=== PATIENT | male | born 1955 | race Caucasian/White ===

== ENCOUNTER → 2021-05-03 00:25 | Outpatient (CLI) | payer MEDICARE, SELFPAY ==
[2021-05-03 21:52] LABS: SARS-CoV-2 RNA PCR Negative
== END ==
PROVIDERS: PCP Family Medicine; Visit Provider Internal Medicine Critical Care Medicine
DX: R68.89 Other general symptoms and signs (principal); Z20.822 Contact with and (suspected) exposure to COVID-19
CPT/HCPCS: C9803; U0003; U0005

== ENCOUNTER 2021-05-06 16:00 | Outpatient (CLI) | payer MEDICARE, SELFPAY ==
--- NOTE | 2021-05-19 10:30 | WPDSLEEPSTUD ---
Sleep Study Date of Study: 05/06/21 Ordering Provider: Lui Osorio MD Interpreting Physician: Abiola Jansen MD Sleep Study Type: Split Polysomnogram Height: 1.8 m Weight: 95.254 kg Body Mass Index: 29.2 Neck Circumference (inches): 16.5 [place]: 6 Reason for Sleep Study Loud snoring 05/22/2005 Basic sleep study - mild obstructive sleep apnea, AHI 5.6, worse in supine position, heavy snoring, BMI was 27.9 Sleep History Avelino Santiago is a 66 year old man referred by Dr Osorio for constant loud snoring that always causes others to complain. His office visit on April 02, 2021 shows that the patient has coronary artery disease, cardiomyopathy, palpitations and shortness of breath. His ejection fraction in 2011 was 35-40% but now this has normalized with an EF of 55-60% from a cardiac cath 08/24/2017. He occasionally awakens at night with heartburn, belching or coughing. He occasionally awakens from sleep feeling short of breath. He frequently has trouble sleep with a cold. He rarely wakes up gasping for breath at night. He occasionally has breathing problems at night observed by others. He frequently sweats excessively at night. He rarely notices his heart pounding or beating irregularly night. He does not fall asleep during the day, does not fall asleep involuntarily or while driving the car. He does not have loss of muscle tone was strong emotion. He rarely has daytime difficulties due to excessive sleepiness. He does not feel paralyzed on waking or falling asleep. He occasionally has vivid dreamlike scenes upon awakening or falling asleep. He does not feel afraid to go to sleep. He occasionally has nightmares. He frequently remembers his dreams. He occasionally has racing thoughts. He rarely feels sad or depressed. He occasionally feels anxiety. He frequently has muscular tension. He occasionally notices parts of his body jerking. He rarely kicks at night and rarely has crawling or aching feelings in his legs at night. He does not have any kind of leg pain at night. He rarely has morning jaw pain, rarely grinds his teeth during sleep and rarely is bothered by pain during the day. He rarely is awakened by pain at night. He occasionally wakes up feeling stiff in the morning with sore or achy muscles. He rarely wakes up with pain in the neck and spine. He has bowel disturbances and takes and acids regularly. He feels anxious. He occasionally awakens with a morning headache. He occasionally has memory or concentration problems. Normal bedtime is 10:00 p.m. falling asleep within 2-3 minutes, typically waking 4 times during the night for 5 minutes. During this time he uses the bathroom and then rolls over to reposition. Wakes the morning at 6:00 a.m.. He estimates getting 8 hours of sleep at night. The weekend schedule is the same. He occasionally takes naps in the afternoon or evening. A short 10 or 15 minutes nap may be refreshing. He is usually drowsy in the morning for 1 hour or longer. He feels better in the afternoon. Habits: Tobacco half pack per day. Caffeine 2 cups a day. Alcohol 1-2 beverages a day. Recreational drugs once a week. [facility] Past Medical History Medical History (Updated 05/19/21 @ 11:07 by Abiola Jansen MD) BMI 29.0-29.9,adult Coronary artery disease Heart disease Other hyperlipidemia Rupture of right biceps tendon Surgical History Surgical History H/O heart artery stent Family History Family History Father Family history of cardiovascular disease Acute myocardial infarction, Onset Age: 30 Grandparent Family history of cardiovascular disease Sibling Family history of cardiovascular disease Family history of malignant neoplasm of breast Family history of malignant neoplasm of ovary Diabetes mellitus Depression Mother Family history of tonieenti
[2021-05-19 10:50] VITALS: BMI 29.2
== END 2021-05-07 07:46 | disposition home or self-care (01) ==
LOC: ANHCSM 05-10 10:12
PROVIDERS: PCP Family Medicine; Visit Provider Internal Medicine Cardiovascular Disease
DX: G47.33 Obstructive sleep apnea (adult) (pediatric) (principal); G47.10 Hypersomnia, unspecified; Z72.0 Tobacco use
CPT/HCPCS: 95811

== ENCOUNTER 2021-07-27 00:50 | Day surgery (SDC) | payer MEDICARE, SELFPAY ==
[2021-07-16 14:46] VITALS: BMI 28.4
[2021-07-27 06:36] VITALS: BP 103/81; PULSE 80; RESP 16; TEMP 36.2; O2SAT 100
[2021-07-27] MEDS: LACTATED RINGERS 1,000 ML 150 ML IV CONT (06:57)
--- NOTE | 2021-07-27 07:42 | WPDANESEPPF ---
Anes - Initial Pre Proc Eval Procedure: Operation Date: 07/27/21 08:00 Proposed Procedures p Screening Colonoscopy - Keith Gutierrez MD Date/Time: 07/27/21 07:42 Surgeon: Keith Gutierrez MD Pre Op Diagnosis: neoplasm screening Patient Data Age: 66 Gender: M Height: 1.83 m Weight: 92 kg Last Vital Signs Temp 97.2 F L 07/27/21 06:36 Pulse 80 07/27/21 06:36 Resp 16 07/27/21 06:36 BP 103/81 07/27/21 06:36 Pulse Ox 100 07/27/21 06:36 Allergies Allergy/AdvReac Type Severity Reaction Status Date / Time codeine Allergy Unknown Unknown Verified 07/27/21 06:33 Home Medications Medication Instructions Recorded Confirmed Type amlodipine 2.5 mg tablet 2.5 mg PO DAILY 06/03/20 07/16/21 History ascorbic acid (vitamin C) 500 mg 500 mg PO DAILY 06/03/20 07/16/21 History tablet aspirin 81 mg tablet,delayed 81 mg PO DAILY 06/03/20 07/16/21 History release atorvastatin 40 mg tablet 40 mg PO DAILY 06/03/20 07/16/21 History metoprolol tartrate 25 mg tablet 25 mg PO DAILY 06/03/20 07/16/21 History multivitamin 1 cap PO DAILY 06/03/20 07/16/21 History nitroglycerin 0.4 mg sublingual 0.4 mg SUBLINGUAL Q5M PRN 06/03/20 07/16/21 History tablet omega-3 fatty acids 1,000 mg 1,000 mg PO DAILY 06/03/20 07/16/21 History capsule omeprazole 40 mg capsule,delayed 40 mg PO DAILY 06/03/20 07/16/21 History release ranolazine 1,000 mg 1,000 mg PO Q12H 06/03/20 07/16/21 History tablet,extended release,12 hr citalopram 10 mg tablet 10 mg PO DAILY #90 tablet 10/08/20 07/16/21 Rx Patient hx anesthesia problems: none Family hx anesthesia problems: none PMFSH Past Medical History Medical History (Updated 07/27/21 @ 07:43 by Alexey Ashraf MD) BMI 29.0-29.9,adult Coronary artery disease EF done 04/16; 35-40 per cent Heart disease Other hyperlipidemia Rupture of right biceps tendon Surgical History Surgical History H/O heart artery stent Family History Family History Father Family history of cardiovascular disease Acute myocardial infarction, Onset Age: 30 Grandparent Family history of cardiovascular disease Sibling Family history of cardiovascular disease Family history of malignant neoplasm of breast Family history of malignant neoplasm of ovary Diabetes mellitus Depression Mother Family history of dementia Social History Social History Smoking packs per day: 0.5 Smoking cigarettes per day: 10.0 Years smoked: 50 Smoking pack-years: 25.00 Smoking status: Current every day smoker Alcohol intake: current Drinks per week: 4 Living arrangements: with family 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 [employer] Gender identity (if verbalized by the patient): Male Spiritual care concerns: No Anes - Eval Final PreProcedure Day of Procedure 07/27/21 07:42 Patient weight: overweight Heart: regular rate and rhythm Lungs: clear to auscultation Airway: Mallampati scale class III Neurological: alert and oriented Last oral intake: >/= 8 hours ASA classification: III Emergent: no Anesthetic plan: proceed Anesthesia type and monitoring: general GIVS and standard monitoring Informed Consent: The patient's anesthetic plan and its attendant risks and benefits were discussed with the patient/family/POA. Questions were solicited and answers provided to the satisfaction of the patient/family/POA.
--- NOTE | 2021-07-27 08:29 | WPDGICN ---
Assessment and Plan Assessment and plan (1) Encounter for screening colonoscopy: Code(s): Z12.11 - Encounter for screening for malignant neoplasm of colon Status: Acute Assessment and Plan: Patient presents for screening colonoscopy. Appears to be at average risk for colon polyps. GI Consult Note Consult date/time: 07/27/21 08:29 HPI: Avelino Santiago is a 66 year old male presents for screening colonoscopy. Patient reports his current weight appetite bowel movements are normal. He denies abdominal pain. He has had no bleeding. His family history is noncontributory. His last colonoscopy was 10 years ago. Patient presents today for neoplasia screening. Review of Systems Review of Systems: All systems reviewed & are unremarkable except as noted in HPI and below PMFSH Past Medical History Medical History (Updated 07/27/21 @ 08:31 by Keith Gutierrez MD) BMI 29.0-29.9,adult Coronary artery disease EF done 04/16; 35-40 per cent Heart disease Other hyperlipidemia Rupture of right biceps tendon Surgical History Surgical History H/O heart artery stent Family History Family History Father Family history of cardiovascular disease Acute myocardial infarction, Onset Age: 30 Grandparent Family history of cardiovascular disease Sibling Family history of cardiovascular disease Family history of malignant neoplasm of breast Family history of malignant neoplasm of ovary Diabetes mellitus Depression Mother Family history of dementia Social History Social History Smoking packs per day: 0.5 Smoking cigarettes per day: 10.0 Years smoked: 50 Smoking pack-years: 25.00 Smoking status: Current every day smoker Alcohol intake: current Drinks per week: 4 Living arrangements: with family 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 [employer] Gender identity (if verbalized by the patient): Male Spiritual care concerns: No Meds Home Medications and Allergies Home Medications Medication Instructions Recorded Confirmed Type amlodipine 2.5 mg tablet 2.5 mg PO DAILY 06/03/20 07/16/21 History ascorbic acid (vitamin C) 500 mg 500 mg PO DAILY 06/03/20 07/16/21 History tablet aspirin 81 mg tablet,delayed 81 mg PO DAILY 06/03/20 07/16/21 History release atorvastatin 40 mg tablet 40 mg PO DAILY 06/03/20 07/16/21 History metoprolol tartrate 25 mg tablet 25 mg PO DAILY 06/03/20 07/16/21 History multivitamin 1 cap PO DAILY 06/03/20 07/16/21 History nitroglycerin 0.4 mg sublingual 0.4 mg SUBLINGUAL Q5M PRN 06/03/20 07/16/21 History tablet omega-3 fatty acids 1,000 mg 1,000 mg PO DAILY 06/03/20 07/16/21 History capsule omeprazole 40 mg capsule,delayed 40 mg PO DAILY 06/03/20 07/16/21 History release ranolazine 1,000 mg 1,000 mg PO Q12H 06/03/20 07/16/21 History tablet,extended release,12 hr citalopram 10 mg tablet 10 mg PO DAILY #90 tablet 10/08/20 07/16/21 Rx Allergies Allergy/AdvReac Type Severity Reaction Status Date / Time codeine Allergy Unknown Unknown Verified 07/27/21 06:33 Vital Signs Vital Signs - 24 hr 07/27/21 06:36 Temperature 97.2 F L Pulse Rate 80 Respiratory Rate 16 Blood Pressure 103/81 Pulse Oximetry 100 Exam Narrative: Physical exam reveals patient to be alert. Vital signs stable. HEENT exam is unremarkable. Patient is anicteric. Lungs are clear to auscultation and percussion. Heart is without murmur or extra sounds. Abdominal exam bowel sounds are present soft nontender with no hepatosplenomegaly. Digital external rectal exam is normal.
[2021-07-27 08:32] VITALS: BP 86/56; PULSE 66; RESP 17; O2SAT 99
[2021-07-27 08:42] VITALS: BP 94/53; PULSE 65; RESP 18; O2SAT 99
[2021-07-27 08:52] VITALS: BP 109/73; PULSE 61; RESP 15; O2SAT 100
== END 2021-07-27 09:00 | disposition home or self-care (01) ==
PROVIDERS: PCP Family Medicine; Visit Provider Internal Medicine Gastroenterology
PROC: 0DJD8ZZ Inspection of Lower Intestinal Tract, Via Natural or Artificial Opening Endoscopic (ICD-10-PCS; CPT 45378; principal; 2021-07-27 08:00)
DX: Z12.11 Encounter for screening for malignant neoplasm of colon (principal); K63.5 Polyp of colon; K57.30 Diverticulosis of large intestine without perforation or abscess without bleeding; K64.8 Other hemorrhoids; Z79.82 Long term (current) use of aspirin; I25.10 Atherosclerotic heart disease of native coronary artery without angina pectoris; E78.5 Hyperlipidemia, unspecified; F17.210 Nicotine dependence, cigarettes, uncomplicated
CPT/HCPCS: 45385; 88305; J2704; J7120

== ENCOUNTER 2021-10-26 08:23 | Outpatient (CLI) | payer MEDICARE, SELFPAY ==
--- NOTE | ~2021-10-26 | US_ITS ---
EXAMINATION: US aorta [facility] DATE: 10/26/2021 08:56 INDICATION: Abdominal aortic aneurysm screening with risk factors of hypercholesterolemia and smoking . TECHNIQUE: Grayscale, color Doppler, and pulsed Doppler images of the aorta and common iliac arteries were obtained. COMPARISON: None. FINDINGS: The proximal aorta measures 2.9 cm. The mid aorta measures 2.5 cm. Fusiform aneurysm in the distal ao rta measuring up to 5.1 cm in maximal AP diameter. There is thrombus partially filling the aneurysm w ith a residual faint intraluminal diameter of 1.8 cm . Right common iliac artery measures 1.8 cm. The left common iliac artery measures 1.8 cm. IMPRESSION: 1. Fusiform infrarenal abdominal aortic aneurysm measuring up to 5.1 cm. 2. Ectatic bilateral common iliac arteries, each measuring 1.8 cm in maximal diameter. Reviewed, dictated and finalized at location A. BREEDER IMPRESSION: 1. Fusiform infrarenal abdominal aortic aneurysm measuring up to 5.1 cm. 2. Ectatic bilateral common iliac arteries, each measuring 1.8 cm in maximal di ameter.
== END 2021-10-26 08:24 | disposition home or self-care (01) ==
LOC: ANHIMG 08:31
PROVIDERS: PCP Family Medicine; Visit Provider Physician Assistant
DX: Z13.6 Encounter for screening for cardiovascular disorders (principal); I71.4 Abdominal aortic aneurysm, without rupture; F17.200 Nicotine dependence, unspecified, uncomplicated
CPT/HCPCS: 76706

== ENCOUNTER → 2022-03-04 01:28 | Outpatient (CLI) | payer MEDICARE, SELFPAY ==
[2022-03-04 13:26] LABS: SARS-CoV-2 RNA PCR Negative
== END ==
PROVIDERS: PCP Family Medicine; Visit Provider Family Medicine
DX: J02.9 Acute pharyngitis, unspecified (principal); Z20.822 Contact with and (suspected) exposure to COVID-19
CPT/HCPCS: C9803; U0003; U0005

== ENCOUNTER 2023-08-18 15:40 | Outpatient (CLI) | payer MEDICARE, SELFPAY ==
--- NOTE | ~2023-08-18 | XR_ITS ---
XR knee LT 3V DATE: 08/18/2023 16:15 INDICATION: Fall off of golf cart. Pain at distal anterior knee TECHNIQUE: [place], AP and lateral views COMPARISON: None FINDINGS: Mild periarticular spurring at the patellofemoral joint consistent with mild osteoarthritis . Medial and lateral compartment joint spaces appear well preserved. No fracture or dislocation or joint effusion, periosteal reaction or bone destruction or chondrocalci nosis is detected. Mild femoral artery and trifurcation artery calcification. IMPRESSION: No fracture or dislocation or joint effusion is detected Reviewed, dictated and finalized at location A.
--- NOTE | ~2023-08-18 | XR_ITS ---
XR tibia fibula RT 2V DATE: 08/18/2023 16:15 INDICATION: Fall off a golf cart. Pain at lower leg and ankle TECHNIQUE: AP and lateral views COMPARISON: None FINDINGS: There is minimal lateral soft tissue swelling of the ankle. No fracture, dislocation, periosteal reaction or bone destruction of the tibia or fibula. Prominent posterior calcaneal enthesopathy and distal Achilles tendon calcification. Slight plantar c alcaneal enthesopathy.. IMPRESSION: No recent fracture or dislocation is detected Reviewed, dictated and finalized at location A.
== END 2023-08-18 15:41 ==
LOC: GOSHIMG 15:41
PROVIDERS: PCP Emergency Medicine; Visit Provider Emergency Medicine
DX: M25.562 Pain in left knee (principal)
CPT/HCPCS: 73562; 73590

== ENCOUNTER 2023-09-01 09:30 | Outpatient (RCR) | payer MEDICARE, SELFPAY ==
--- NOTE | 2023-09-15 10:17 | PCWOUND ---
WOCN NOTE Patient did not show up for appointment today, left message at cell number. Patient called back and stated wound is closed and fine. Patient will be discharged.
== END 2023-09-15 10:22 | disposition home or self-care (01) ==
LOC: ANHWOC 09:30
PROVIDERS: PCP Emergency Medicine; Visit Provider Emergency Medicine
DX: L24.A9 Irritant contact dermatitis due friction or contact with other specified body fluids (principal)
CPT/HCPCS: 99212; 99213; A9270; G0463

== ENCOUNTER 2023-09-05 14:49 | Outpatient (CLI) | payer MEDICARE, SELFPAY ==
--- NOTE | ~2023-09-05 | US_ITS ---
EXAMINATION: US venous doppler LE RT DATE: 09/05/2023 15:28 INDICATION: Right lower limb swelling TECHNIQUE: Green scale images without and with compression and Doppler images of the right lower extre mity veins were obtained. COMPARISON: None FINDINGS: The right common femoral vein, profunda femoral vein, femoral vein, popliteal vein, peronea l trunk, posterior tibial veins, and greater saphenous vein are patent. IMPRESSION: 1. Patent right lower extremity veins. No evidence of deep venous thrombosis. Reviewed, dictated and finalized at location F.
== END 2023-09-05 14:50 | disposition home or self-care (01) ==
LOC: ANHIMG 14:50
PROVIDERS: PCP Emergency Medicine; Visit Provider Emergency Medicine
DX: M79.89 Other specified soft tissue disorders (principal)
CPT/HCPCS: 93971

== ENCOUNTER 2023-10-23 19:09 | Emergency (ER) | payer MEDICARE, SELFPAY ==
--- NOTE | ~2023-10-23 | XR_ITS ---
Right Knee Technique: AP, lateral, and oblique views were obtained. Clinical History: Pain Findings: No fracture or dislocation is seen. Osseous alignment is anatomic. Joint spaces are preserv ed without degenerative or erosive change. Soft tissues are unremarkable. No joint effusion is seen. Impression: Unremarkable right knee radiographs. Reviewed, dictated and finalized at [facility]. [employer] Impression: Unremarkable right knee radiographs.
[2023-10-23 19:16] VITALS: BP 138/74; PULSE 88; RESP 20; TEMP 35.7; O2SAT 97
[2023-10-23 23:16] VITALS: BP 119/75; PULSE 77; RESP 18; O2SAT 98
[2023-10-24 01:55] VITALS: BP 144/85; O2SAT 99
[2023-10-24 02:01] VITALS: BP 110/74; O2SAT 98
[2023-10-24 02:06] LABS: Basophils Percent Auto 0.6 % (0.2-1.2); Eosinophils Absolute Auto 0.3 K/mm3 (0-0.3); Eosinophils Percent Auto 3.6 % (0-4.4); Hematocrit 41.4 % (42.0-52.0); Hemoglobin 13.7 g/dL (14.0-18.0); Immature Granulocyte Absolute 0.01 K/mm3 (0.00-0.031); Immature Granulocyte Percent A 0.1 % (0-0.5); Lymphocytes Absolute Auto 2.66 K/mm3 (0.9-3.2); Mean Corpuscular HGB Conc 33.1 g/dl (32-36); Mean Corpuscular Hemoglobin 33.7 pg (26-34); Monocytes Absolute Auto 0.6 K/mm3 (0.1-0.6); Monocytes Percent Auto 8.6 % (2.6-8.5); Neutrophils Absolute Auto 3.6 K/mm3 (1.3-6.7); Neutrophils Percent Auto 50.1 % (45.5-73.1); Platelet Count Result 167 k/mm3 (150-375); Red Blood Count 4.06 M/mm3 (4.6-6.20); Red Cell Distribution Width 13.5 % (11.5-14.5); White Blood Count 7.2 K/mm3 (4.5-10.0)
[2023-10-24 02:15] LABS: Prothrombin Time 13.7 Seconds (11.1-14.7)
[2023-10-24 02:16] LABS: Partial Thromboplastin Time 36.7 SECONDS (22.3-36.8)
[2023-10-24 02:17] LABS: Alanine Aminotransferase 25 U/L (6-50); Albumin Level 4.1 g/dL (3.5-5.1); Alkaline Phosphatase 68 U/L (38-126); Anion Gap 7 mmol/L (8-16); Aspartate Amino Transferase 33 U/L (17-59); Bilirubin,Total 0.4 mg/dL (0.2-1.3); Blood Urea Nitrogen 10 mg/dL (9-20); Calcium 9.4 mg/dL (8.4-10.2); Carbon Dioxide 26 mmol/L (22-30); Chloride 103 mmol/L (98-107); Estimated CRCL calculation 93 ml/min; Estimated Glomerular Filt Rate > 60; Glucose 102 mg/dL (65-110); Potassium 3.7 mmol/L (3.4-5.0); Sodium 136 mmol/L (137-145)
[2023-10-24 02:27] LABS: D Dimer 1.18 ug/mL (<0.48)
[2023-10-24 02:45] VITALS: BP 119/84; PULSE 66; RESP 17; O2SAT 94
--- NOTE | 2023-10-24 02:52 | ED.GENADULT ---
HPI - General Adult General Chief complaint: Extremity Problem,Nontraumatic Stated complaint: right leg pain Time Seen by Provider: 10/24/23 01:05 History of Present Illness HPI narrative: CC he has is a 8-year-old gentleman presents emerged department where she complained of bruising in the right knee and concern for blood clot with patient has prior history of vascular disease and has had stents placed in his arm or if patient noticed he had some bruising present manage name patient states his leg was a little swollen was concerned he may have DVT or a half patient reports no color change in the leg no numbness or tingling reports no pain in his feet denies views trauma reports he is not on blood thinners Related Data Home Medications Medication Instructions Recorded Confirmed amlodipine 2.5 mg tablet 2.5 mg PO DAILY 06/03/20 08/18/23 ascorbic acid (vitamin C) 500 mg 500 mg PO DAILY 06/03/20 08/18/23 tablet aspirin 81 mg tablet,delayed 81 mg PO DAILY 06/03/20 08/18/23 release (Adult Aspirin Regimen) metoprolol tartrate 25 mg tablet 25 mg PO DAILY 06/03/20 08/18/23 multivitamin 1 cap PO DAILY 06/03/20 08/18/23 nitroglycerin 0.4 mg sublingual 0.4 mg sublingual Q5M PRN Chest 06/03/20 08/18/23 tablet Pain omega-3 fatty acids 1,000 mg 1,000 mg PO DAILY 06/03/20 08/18/23 capsule (Fish Oil Concentrate) omeprazole 40 mg capsule,delayed 40 mg PO DAILY 06/03/20 08/18/23 release ranolazine 1,000 mg 1,000 mg PO Q12H 06/03/20 08/18/23 tablet,extended release,12 hr rosuvastatin 40 mg tablet mg PO DAILY 08/18/23 08/18/23 tamsulosin 0.4 mg capsule mg PO 08/18/23 08/18/23 Allergies Allergy/AdvReac Type Severity Reaction Status Date / Time codeine Allergy Unknown Unknown Verified 10/24/23 00:38 Review of Systems Review of Systems: A 10 system review of systems was completed on the patient and is negative except for what is stated in the HPI. Nursing and ancillary documentation was reviewed. [facility] Past Medical History Medical History BMI 29.0-29.9,adult Coronary artery disease EF done 04/16; 35-40 per cent Heart disease Other hyperlipidemia Pain in right leg Rupture of right biceps tendon Surgical History Surgical History H/O heart artery stent Family History Family History Father Family history of cardiovascular disease Acute myocardial infarction, Onset Age: 30 Grandparent Family history of cardiovascular disease Sibling Family history of cardiovascular disease Family history of malignant neoplasm of breast Family history of malignant neoplasm of ovary Diabetes mellitus Depression Mother Family history of dementia Social History Social History Smoking packs per day: 0.5 Smoking cigarettes per day: 10.0 Years smoked: 50 Smoking pack-years: 25.00 Smoking status: Never smoker Alcohol intake: current Drinks per week: 4 Lack of Transportation: No Lack of Food: Never True Current Housing: I Have Housing Concerned About Future Housing: No Difficulty Paying Gas/Electric Bills: No Difficulty Paying for Meds: No Currently Unemployed: No Education: High School Diploma/GED Difficulty w/ Childcare or Family Care: No Living arrangements: with family Occupation/Education: occupation 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 HEAD: Normocephalic, atraumatic. EYES: PERRLA and EOMI. ENT: Nares clear, no rhinorrhea or epistaxis. Mucous membranes moist. NECK: Supple. CHEST: Clear to auscultation. No r
[2023-10-24] MEDS: ENOXAPARIN 100 MG/ML SYRINGE 98 MG SUB-Q (03:08)
[2023-10-24 03:12] VITALS: BP 134/87; PULSE 72; RESP 17; O2SAT 98
== END 2023-10-24 03:14 | disposition home or self-care (01) ==
PROVIDERS: Emergency Provider Emergency Medicine; PCP Emergency Medicine
DX: M79.604 Pain in right leg (principal); I25.10 Atherosclerotic heart disease of native coronary artery without angina pectoris; E78.49 Other hyperlipidemia; Z79.82 Long term (current) use of aspirin
CPT/HCPCS: 36415; 73562; 80053; 85025; 85380; 85610; 85730; 93971; 96372; 99283; J1650

== ENCOUNTER 2023-10-24 08:03 | Outpatient (CLI) | payer MEDICARE, SELFPAY ==
--- NOTE | ~2023-10-24 | US_ITS ---
EXAMINATION:US venous doppler LE RT INDICATION:Right leg pain TECHNIQUE: Multiple grayscale, color flow and Doppler images of the right lower extremity deep venous systems were obtained and reviewed. COMPARISON:09/05/2023 FINDINGS: The common femoral, superficial femoral and popliteal veins demonstrate normal respiratory variation, augmentation and compressibility. Color flow is also seen within the posterior tibial, pe roneal, greater saphenous and profunda veins. IMPRESSION: 1: No lower extremity deep venous thrombosis. Reviewed, dictated and finalized at location L. RUFFER
== END 2023-10-24 08:04 | disposition home or self-care (01) ==
PROVIDERS: PCP Emergency Medicine; Visit Provider Emergency Medicine
DX: M79.604 Pain in right leg (principal)
CPT/HCPCS: 93971

== ENCOUNTER 2023-11-10 10:09 | Outpatient (CLI) | payer MEDICARE, SELFPAY ==
--- NOTE | ~2023-11-10 | MR_ITS ---
MRI of the right knee Clinical history: Pain Technique: Coronal proton density and proton density-weighted images, sagittal proton-density and T2 fat-sat images, and axial proton-density fat-saturated images were acquired. Findings: Anterior and posterior cruciate ligaments are intact. Medial collateral ligament and the la teral collateral ligament complex are intact. Popliteus tendon is intact. There is mild soft tissue e darleen about the MCL. There is predominantly horizontal, likely complicating tearing of the posterior horn of the medial me niscus. No lateral meniscal tear identified. There is extensive marrow edema in the medial tibial plateau region. There is mild chondromalacia pat radha along the lateral facet. Extensor mechanism is intact. Small joint effusion present. No Lozano's cyst. Impression: Predominantly horizontal, mildly complex tearing of the posterior horn of the medial assist. Marrow edema at the medial tibial plateau region. This could reflect bone contusion from direct impac tion injury, versus other reactive marrow edema. Small joint effusion. Reviewed, dictated and finalized at [facility]. S HAND Impression: Predominantly horizontal, mildly complex tearing of the posterior horn of the m edial assist. Marrow edema at the medial tibial plateau region. This could reflect bone contu kai from direct impaction injury, versus other reactive marrow edema. Small joint effusion.
== END 2023-11-10 10:10 ==
LOC: GOSHIMG 10:09
PROVIDERS: PCP Internal Medicine; Visit Provider Internal Medicine
DX: S83.231A Complex tear of medial meniscus, current injury, right knee, initial encounter (principal); M25.461 Effusion, right knee; D75.89 Other specified diseases of blood and blood-forming organs; X58.XXXA Exposure to other specified factors, initial encounter
CPT/HCPCS: 73721

== ENCOUNTER 2023-11-17 13:56 | Outpatient (RCR) | payer MEDICARE, SELFPAY ==
--- NOTE | 2023-11-17 16:14 | PTOPEVAL1 ---
Assessment and note entered by Carol Paulino, PT, DPT Evaluation Information Assessment Status Evaluation Diagnosis R knee pain Subjective Information Pt states he initially went to the ER because he has bruising in his posterior knee fossa. He states an MRI showed a medial meniscus tear. He states walking does not cause him any issues but if he moved his knee a certain way he will get a sharp pain. He states he feels the worst pain if he tries to scoot something over with his R leg, rolling over in bed, and changing directions when walking. Reported Pain Level Pain Score 1: Self Report Assessment PT Clinical Summary Avelino presents to therapy today for his initial evaluation with a diagnosis of knee pain, MRI results showing a (+) meniscus tear. Today pt demonstrates s/s consistent with a medial meniscus injury. Pt was given extensive education about his tear, treatment options, and way to avoid pain until his follow up. He elected to follow up with the clinic after he meets with ortho. Plan of Care PT Services Indicated Yes Treatment Frequency and follow up after ortho consult Duration These treatments will address the objective and functional deficits as defined above. The patient will be advanced safely and appropriately in order for the patient to progress towards his/her prior level of function. Additional exercises will be introduced and as well as a comprehensive home exercise program upon discharge, if needed, ?to ensure carryover of functional gains achieved in the clinic. This treatment plan has been reviewed and agreement upon by the patient.
--- NOTE | 2024-01-05 11:46 | PTOPDC ---
Assessment and note entered by Carol Paulino, PT, DPT Evaluation Information Assessment Status Discharge - Pt Not Present Diagnosis R knee pain Subjective Information Per chart review pt had surgery on 12/25/23, he would need a new order if continuation of skilled therapy is indicated. Assessment PT Clinical Summary Avelino was evaluated on 11/17/23 and did not complete any follow up appointments. He will be discharged from this current therapy order d/t having surgery. If he needs additional therapy he will need a new order.
== END 2024-01-05 13:44 | disposition home or self-care (01) ==
LOC: ANHGOSHPT 13:56
PROVIDERS: PCP Internal Medicine; Visit Provider Internal Medicine
DX: M25.561 Pain in right knee (principal)
CPT/HCPCS: 97110; 97161

== ENCOUNTER 2023-12-19 14:01 | Outpatient (CLI) | payer MEDICARE, SELFPAY ==
--- NOTE | 2023-12-19 14:46 | ECG_ITS ---
Measurements Intervals [place] Rate: 73 P: 0 WI: 224 QRS: -12 QRSD: 106 T: -1 QT: 373 QTc: 412 Interpretive Statements SINUS RHYTHM WITH FIRST DEGREE AV BLOCK DELAYED PRECORDIAL R/S TRANSITION INFERIOR INFARCT, AGE INDETERMINATE BASELINE ARTIFACT- V4-V6 ABNORMAL ECG COMPARED TO ECG 05/01/2019 09:32:43 FIRST DEGREE AV BLOCK NOW PRESENT Electronically Signed On 12-19-2023 15:05:41 CRYPTOLOGIC TECHNICIAN OPERATOR/ANALYST by [place] Desai D.O.
== END 2023-12-19 14:02 | disposition home or self-care (01) ==
PROVIDERS: PCP Internal Medicine; Visit Provider Orthopaedic Surgery
DX: Z01.818 Encounter for other preprocedural examination (principal); I10 Essential (primary) hypertension; I44.0 Atrioventricular block, first degree; R94.31 Abnormal electrocardiogram [ECG] [EKG]; R93.1 Abnormal findings on diagnostic imaging of heart and coronary circulation
CPT/HCPCS: 93005

== ENCOUNTER 2023-12-25 01:18 | Day surgery (SDC) | payer MEDICARE, SELFPAY ==
[2023-12-13 15:51] VITALS: BMI 30.1
--- NOTE | 2023-12-13 16:12 | PC.NURSE ---
Report to the Outpatient Waiting Room, entrance under the green pavilion located off [facility], at time __8:00AM on date __12/25/23 . Planned Procedure Time: _10:00AM . Time changes happen often and if your time is changed the preop area will call you the afternoon before. - You and your visitor will be asked to self-screen and do not enter if you have any COVID symptoms. - A mask is optional within the hospital at this time. Patients may have clear liquids (water, carbonated beverages, clear teas, apple juice) until 3 hours prior to surgery with a maximum of 20 ounces. - No food from midnight until time of surgery. Take the following medications with a SIP of water the morning of surgery: ___METOPROLOL, RANOLAZINE DO NOT STOP ANY OF YOUR OTHER PRESCRIPTION MEDICATIONS PRIOR TO SURGERY ?EXCEPT THE FOLLOWING Medications to discontinue per physician ___HOLD ASPIRIN PER DR RUSSELL PT TO CONTACT SURGEON. HOLD ALL VITAMINS/SUPPLEMENTS 3 DAYS PRE-OP PER ANESTHESIA- LAST DOSE 12/21/23. Please no make-up, nail mohawk, hairspray, perfume, deodorant, or body powder the day of surgery. No jewelry (including any body piercings) or valuables the day of surgery, leave them at home. Please take a shower or bath the night before, or the morning of, surgery with an antibacterial soap. Wear comfortable, loose fitting clothing. Children are encouraged to wear pajamas. - Jewelry must be removed prior to entering the operating room. Rings and piercings that are not removed may be cut off. - The hospital will not accept responsibility for valuables. - Please leave all valuables, including medications, at home the day of surgery. If you are going home after surgery, a licensed chuck wagon driver must drive you home. - NO public transportation without another adult if you receive anesthesia. - We recommend that an adult stay with you for 24 hours following discharge. - We also recommend that you do not drive, make important decision, drink alcoholic beverages, or take any drugs that were not prescribed by your health care provider for at least 24 hours after your discharge time. Follow any additional instructions given to you from your surgeon. If you or anyone in your household have experienced Covid symptoms in the past week, please notify your surgeon or the nurse liaison at the phone number below for possible testing. Telephone instructions given to ___PATIENT and asked if any additional questions and then verbalized understanding. Patient advised to call surgeon office or pre surgery nurse liaison [phone] if any additional questions.
--- NOTE | 2023-12-21 11:52 | PM.IMHP ---
H&P: HPI History of Present Illness Date/Time: 12/21/23 11:52 Chief Complaint: Catching and locking right knee. Review of Systems Musculoskeletal: Musculoskeletal: Reports arthralgias and Reports joint swelling PMF Past Medical History Medical History (Updated 11/30/23 @ 14:45 by Ata Guzman MD) Anemia BMI 29.0-29.9,adult Coronary artery disease Heart disease History of aortic aneurysm History of basal cell cancer Other hyperlipidemia Pain in right leg Rupture of right biceps tendon Surgical History Surgical History H/O heart artery stent Family History Family History Father Family history of cardiovascular disease Acute myocardial infarction, Onset Age: 30 Grandparent Family history of cardiovascular disease Sibling Family history of cardiovascular disease Family history of malignant neoplasm of breast Family history of malignant neoplasm of ovary Diabetes mellitus Depression Mother Family history of dementia Social History Social History (Updated 11/30/23 @ 14:35 by Tess Tran CMA) Smoking packs per day: 1 Smoking cigarettes per day: 20.0 Years smoked: 50 Smoking pack-years: 50.00 Smoking status: Current every day smoker Tobacco type: cigarettes Additional smoking assessment comments: SMOKING 1/2 PACK CURRENTLY Alcohol intake: current Drinks per week: 4 Substance use type: does not use Do You Feel Safe in your Home?: Yes Lack of Transportation: No Lack of Food: Never True Current Housing: I Have Housing Concerned About Future Housing: No Difficulty Paying Gas/Electric Bills: No Difficulty Paying for Meds: No Currently Unemployed: No Education: High School Diploma/GED Difficulty w/ Childcare or Family Care: No Living arrangements: with family Additional living arrangements comments: Occupation/Education: retired Gender identity (if verbalized by the patient): Male Spiritual care concerns: No Meds Home Medications and Allergies Home Medications Medication Instructions Recorded Confirmed Type amlodipine 2.5 mg tablet 2.5 mg PO HS 06/03/20 12/13/23 History ascorbic acid (vitamin C) 500 mg 500 mg PO DAILY 06/03/20 12/13/23 History tablet aspirin 81 mg tablet,delayed 81 mg PO DAILY 06/03/20 12/13/23 History release (Adult Aspirin Regimen) metoprolol tartrate 25 mg tablet 25 mg PO BID 06/03/20 12/13/23 History nitroglycerin 0.4 mg sublingual 0.4 mg sublingual Q5M PRN Chest 06/03/20 12/13/23 History tablet Pain omega-3 fatty acids 1,000 mg 1,000 mg PO DAILY 06/03/20 12/13/23 History capsule (Fish Oil Concentrate) omeprazole 40 mg capsule,delayed 40 mg PO DAILY 06/03/20 12/13/23 History release ranolazine 1,000 mg 1,000 mg PO Q12H 06/03/20 12/13/23 History tablet,extended release,12 hr rosuvastatin 40 mg tablet 40 mg PO DAILY 08/18/23 12/13/23 History tamsulosin 0.4 mg capsule 0.4 mg PO HS 08/18/23 12/13/23 History cholecalciferol (vitamin D3) 250 250 mcg PO WEEKLY 11/30/23 12/13/23 History mcg (10,000 unit) capsule citalopram 10 mg tablet 10 mg PO HS 12/13/23 12/13/23 History Allergies Allergy/AdvReac Type Severity Reaction Status Date / Time codeine AdvReac Unknown Nausea Verified 12/13/23 15:46 Exam Narrative: On exam the patient is tender medially has catching and locking of the joint and has a positive Magdy's. He is tender to palpation has pain to manipulation. The knee is stable quadriceps strength intact. He walks with a mildly antalgic gait. Const: General: no acute distress Eyes: General: appearance normal, both eyes and all related structures Neck: Neck: supple Resp: Effort & Inspection: normal respiratory effort Cardio: Rate: regular rate Rhythm: regular rhythm H&P: Results Labs Labs: Patient: Avelino Santiago
[2023-12-25] VITALS (7 sets, daily range): BP systolic 101–124; BP diastolic 66–85; PULSE 67–78; RESP 12–20; TEMP 36–36.2; O2SAT 94–100
--- NOTE | 2023-12-25 06:55 | WPDHPUPDATE1 ---
History and Physical Update Update Date/Time: 12/25/23 06:55 Procedure: Right Knee Arthroscopy, partial menisectomy History and Physical has been reviewed, including an updated exam of the patient. There are NO changes in the patient's condition. Risks, benefits, and alternatives have been discussed and questions answered. Patient agrees to proceed with procedure.
[2023-12-25] MEDS: ACETAMINOPHEN 500 MG TABLET 1000 MG PO (07:15)
[2023-12-25] MEDS: LACTATED RINGERS 1,000 ML 30 ML IV CONT (07:15)
[2023-12-25] MEDS: KETOROLAC 15 MG/ML VIAL (*BKC) IV PUSH (07:15)
--- NOTE | 2023-12-25 07:25 | WPDANESEPPF ---
Anes - Initial Pre Proc Eval Procedure: Operation Date: 12/25/23 07:30 Proposed Procedures p Right Knee Arthroscopy, Partial Meniscectomy - Ata Guzman MD Date/Time: 12/25/23 07:25 Surgeon: Ata Guzman MD Pre Op Diagnosis: Right medial meniscal tear Patient Data Age: 68 Gender: M Height: 1.8 m Weight: 98 kg Allergies Allergy/AdvReac Type Severity Reaction Status Date / Time codeine AdvReac Unknown Nausea Verified 12/13/23 15:46 Home Medications Medication Instructions Recorded Confirmed Type amlodipine 2.5 mg tablet 2.5 mg PO HS 06/03/20 12/13/23 History ascorbic acid (vitamin C) 500 mg 500 mg PO DAILY 06/03/20 12/13/23 History tablet aspirin 81 mg tablet,delayed 81 mg PO DAILY 06/03/20 12/13/23 History release (Adult Aspirin Regimen) metoprolol tartrate 25 mg tablet 25 mg PO BID 06/03/20 12/13/23 History nitroglycerin 0.4 mg sublingual 0.4 mg sublingual Q5M PRN Chest 06/03/20 12/13/23 History tablet Pain omega-3 fatty acids 1,000 mg 1,000 mg PO DAILY 06/03/20 12/13/23 History capsule (Fish Oil Concentrate) omeprazole 40 mg capsule,delayed 40 mg PO DAILY 06/03/20 12/13/23 History release ranolazine 1,000 mg 1,000 mg PO Q12H 06/03/20 12/13/23 History tablet,extended release,12 hr rosuvastatin 40 mg tablet 40 mg PO DAILY 08/18/23 12/13/23 History tamsulosin 0.4 mg capsule 0.4 mg PO HS 08/18/23 12/13/23 History cholecalciferol (vitamin D3) 250 250 mcg PO WEEKLY 11/30/23 12/13/23 History mcg (10,000 unit) capsule citalopram 10 mg tablet 10 mg PO HS 12/13/23 12/13/23 History Patient hx anesthesia problems: none Family hx anesthesia problems: none Results Review: All pre-operative results and documents have been reviewed as part of the pre-operative evaluation. [facility] Past Medical History Medical History Anemia BMI 29.0-29.9,adult Coronary artery disease Heart disease History of aortic aneurysm History of basal cell cancer Other hyperlipidemia Pain in right leg Rupture of right biceps tendon Surgical History Surgical History H/O heart artery stent Family History Family History Father Family history of cardiovascular disease Acute myocardial infarction, Onset Age: 30 Grandparent Family history of cardiovascular disease Sibling Family history of cardiovascular disease Family history of malignant neoplasm of breast Family history of malignant neoplasm of ovary Diabetes mellitus Depression Mother Family history of dementia Social History Social History Smoking packs per day: 1 Smoking cigarettes per day: 20.0 Years smoked: 50 Smoking pack-years: 50.00 Smoking status: Current every day smoker Tobacco type: cigarettes Additional smoking assessment comments: SMOKING 1/2 PACK CURRENTLY Alcohol intake: current Drinks per week: 4 Substance use type: does not use Do You Feel Safe in your Home?: Yes Lack of Transportation: No Lack of Food: Never True Current Housing: I Have Housing Concerned About Future Housing: No Difficulty Paying Gas/Electric Bills: No Difficulty Paying for Meds: No Currently Unemployed: No Education: High School Diploma/GED Difficulty w/ Childcare or Family Care: No Living arrangements: with family Additional living arrangements comments: Occupation/Education: retired Gender identity (if verbalized by the patient): Male Spiritual care concerns: No Anes - Eval Final PreProcedure Day of Procedure 12/25/23 07:25 Patient weight: overweight Heart: regular rate and rhythm Lungs: clear to auscultation Airway: Mallampati scale class II Neurological: alert and oriented Last oral intake: >/= 8 hours ASA classification: III Emergen
[2023-12-25] MEDS: ceFAZolin 2 GM/D5W 50 ML 2 GM/50 ML BAG IVPB (07:30)
[2023-12-25] MEDS: LIDO 1%/EPINEPHRINE 1:100,000 50 ML VIAL INFILTRATE (07:50)
--- NOTE | 2023-12-25 08:06 | W.PM.PROC2 ---
Procedure Note - Detailed Date of Procedure 12/25/23 Pre-op Diagnosis Right medial meniscal tear Post-op Diagnosis Same Procedure Performed RIGHT knee arthroscopy with partial meniscetomy Surgeon Ata Guzman MD Anesthesia General Description of Procedure Patient brought to operating room # 8. An anesthetic was administered. The knee was steriley prepped and draped in the usual manner. Standard portals were used. Superior medial portal was used for the outflow cannula, inferior lateral portal was used for the scope, inferior medial portal was used for the instruments. Arthroscopy was performed, the patellar femoral joint degenerative changes. The medial compartment showed a complex tear. The lateral compartment showed fraying. The ACL was intact. Using baskets and julieth the meniscal tear was trimmed back to a stable base so the nothing further could be pulled into the joint. Any loose or delaminated fragments were gently trimmed to a stable base. At this point the instruments were withdrawn, sutures placed and patient left the operating room in satisfactory condition. He had Grade 3 changes medially and in the patellofemoral joint. Estimated Blood Loss 20 Drains No Packing No Pathology None sent Complications No immediate complications Condition Stable Disposition PACU [facility] Billing Surgery - Charge Forward: Surgery Billing (46410 Arthroscopy Partial Menisectomy)
--- NOTE | 2023-12-25 08:32 | SUR.PHASEI ---
0831: Simple mask removed.
[2023-12-25] MEDS: oxyCODONE HCL (*CRX) 5 MG TAB IR PO (09:35)
== END 2023-12-25 09:50 | disposition home or self-care (01) ==
PROVIDERS: PCP Internal Medicine; Visit Provider Orthopaedic Surgery
PROC: (CPT 29870; principal; 2023-12-25 07:30)
DX: S83.231A Complex tear of medial meniscus, current injury, right knee, initial encounter (principal); I25.10 Atherosclerotic heart disease of native coronary artery without angina pectoris; E78.2 Mixed hyperlipidemia; I51.9 Heart disease, unspecified; D64.9 Anemia, unspecified; F17.210 Nicotine dependence, cigarettes, uncomplicated; X58.XXXA Exposure to other specified factors, initial encounter; Z79.82 Long term (current) use of aspirin; Z95.5 Presence of coronary angioplasty implant and graft; Z85.828 Personal history of other malignant neoplasm of skin; Z86.79 Personal history of other diseases of the circulatory system; Z82.49 Family history of ischemic heart disease and other diseases of the circulatory system; Z80.3 Family history of malignant neoplasm of breast; Z80.41 Family history of malignant neoplasm of ovary
CPT/HCPCS: 29880; 93005; A9270; J0690; J1100; J1596; J1885; J2250; J2371; J2405; J2704; J3010; J7120

== ENCOUNTER 2024-01-11 13:56 | Outpatient (CLI) | payer MEDICARE, SELFPAY | END 2024-01-11 13:57 | disposition home or self-care (01) | LOC: ANHAUDASC 13:57 | PROVIDERS: PCP Internal Medicine; Visit Provider Clinical Nurse Specialist | DX: H90.6 Mixed conductive and sensorineural hearing loss, bilateral (principal) | CPT/HCPCS: 92557; 92567 ==

== ENCOUNTER 2024-04-25 08:03 | Outpatient (CLI) | payer MEDICARE, SELFPAY ==
--- NOTE | ~2024-04-25 | XR_ITS ---
EXAMINATION: XR chest 2V 04/25/2024 08:23 INDICATION: Tobacco use PROCEDURE: 2 view chest COMPARISON: Comparison to multiple prior studies sequentially, with oldest reviewed study dated 01/17. FINDINGS: The lungs are clear. The cardiomediastinal silhouette is within normal limits. There are no pleural effusions. There is no pneumothorax suspected. IMPRESSION: 1: NO ACUTE CARDIOPULMONARY DISEASE. Reviewed, dictated and finalized at location B.
== END 2024-04-25 08:04 ==
LOC: GOSHIMG 08:05
PROVIDERS: PCP Internal Medicine; Visit Provider Internal Medicine
DX: R05.9 Cough, unspecified (principal); R09.89 Other specified symptoms and signs involving the circulatory and respiratory systems; Z72.0 Tobacco use
CPT/HCPCS: 71046

== ENCOUNTER 2024-05-02 09:20 | Outpatient (CLI) | payer MEDICARE, SELFPAY ==
[2024-05-02 20:01] LABS: Basophils Absolute Auto 0.1 K/mm3 (0.0-0.1); Basophils Percent Auto 0.5 % (0.2-1.2); Eosinophils Absolute Auto 0.3 K/mm3 (0-0.3); Eosinophils Percent Auto 2.8 % (0-4.4); Hematocrit 44.1 % (42.0-52.0); Hemoglobin 14.2 g/dL (14.0-18.0); Immature Granulocyte Absolute 0.08 K/mm3 (0.00-0.031); Immature Granulocyte Percent A 0.8 % (0-0.5); Lymphocytes Absolute Auto 2.31 K/mm3 (0.9-3.2); Mean Corpuscular HGB Conc 32.2 g/dl (32-36); Mean Corpuscular Hemoglobin 33.3 pg (26-34); Mean Corpuscular Volume 103.3 fl (80-100); Mean Platelet Volume 10.4 fl (7.4-10.4); Monocytes Absolute Auto 0.8 K/mm3 (0.1-0.6); Monocytes Percent Auto 7.9 % (2.6-8.5); Neutrophils Absolute Auto 6.2 K/mm3 (1.3-6.7); Platelet Count Result 232 k/mm3 (150-375); Red Blood Count 4.27 M/mm3 (4.6-6.20); Red Cell Distribution Width 13.6 % (11.5-14.5); White Blood Count 9.6 K/mm3 (4.5-10.0)
== END 2024-05-02 09:21 | disposition home or self-care (01) ==
LOC: ANHGOSHLAB 09:21
PROVIDERS: PCP Internal Medicine; Visit Provider Internal Medicine
DX: R09.89 Other specified symptoms and signs involving the circulatory and respiratory systems (principal); R05.9 Cough, unspecified; J20.9 Acute bronchitis, unspecified; I25.10 Atherosclerotic heart disease of native coronary artery without angina pectoris
CPT/HCPCS: 36415; 85025

== ENCOUNTER 2024-05-02 10:38 | Outpatient (CLI) | payer MEDICARE, SELFPAY ==
--- NOTE | ~2024-05-02 | CT_ITS ---
CT Scan of the Chest without Contrast: Clinical Indication: Dyspnea Technique: Contiguous sections were acquired throughout the chest without intravenous contrast. Dose reduction technique was used on this scan by utilizing automated exposure control and iterative recon struction technique. The dose-length product (DLP) was 377.21 mGy-cm. Findings: There is no evidence of any significant mediastinal, hilar or axillary lymphadenopathy. Shotty medias tinal lymph nodes are not frankly enlarged by size criteria. Coronary artery calcium cages are presen t. There is no evidence of pleural or pericardial effusion. There is a vague area of very mild groundglass attenuation the right upper lobe (axial image 37 for sybil jones). Probable minimal tree-in-bud opacities the left lung base. Images through the upper abdomen reveal no abnormalities. Impression: Probable minimal tree-in-bud opacities the left lung base, compatible with small airways infectious p rocess. Vague groundglass area in the right upper lobe, nonspecific. This could reflect additional pneumoniti s. Reviewed, dictated and finalized at location M. Impression: Probable minimal tree-in-bud opacities the left lung base, compatible with smal l airways infectious process. Vague groundglass area in the right upper lobe, nonspecific. This could reflect additional pneumonitis.
== END 2024-05-02 10:39 ==
LOC: GOSHIMG 10:38
PROVIDERS: PCP Internal Medicine; Visit Provider Internal Medicine
DX: R09.89 Other specified symptoms and signs involving the circulatory and respiratory systems (principal); R91.8 Other nonspecific abnormal finding of lung field
CPT/HCPCS: 71250

== ENCOUNTER 2024-06-13 09:54 | Outpatient (CLI) | payer MEDICARE, SELFPAY ==
[2024-06-13 20:28] LABS: Alanine Aminotransferase 25 U/L (6-50); Albumin Level 4.2 g/dL (3.5-5.1); Alkaline Phosphatase 79 U/L (38-126); Anion Gap 7 mmol/L (4-12); Aspartate Amino Transferase 43 U/L (17-59); Bilirubin,Total 0.3 mg/dL (0.2-1.3); Blood Urea Nitrogen 10 mg/dL (9-20); Calcium 9.3 mg/dL (8.4-10.2); Carbon Dioxide 29 mmol/L (22-30); Chloride 104 mmol/L (98-107); Estimated Glomerular Filt Rate > 60; Glucose 108 mg/dL (65-110); Potassium 4.2 mmol/L (3.4-5.0); Sodium 140 mmol/L (137-145)
== END 2024-06-13 09:55 | disposition home or self-care (01) ==
LOC: ANHGOSHLAB 09:56
PROVIDERS: PCP Internal Medicine; Visit Provider Nurse Practitioner
DX: I25.118 Atherosclerotic heart disease of native coronary artery with other forms of angina pectoris (principal)
CPT/HCPCS: 36415; 80053

== ENCOUNTER 2025-04-22 12:16 | Emergency (ER) | payer MEDICARE, SELFPAY ==
[2025-04-22 12:23] VITALS: BP 125/114; PULSE 81; RESP 18; TEMP 36.6; O2SAT 97
--- NOTE | 2025-04-22 12:27 | ED.URI ---
HPI - URI/Sore Throat General Chief Complaint: Upper Respiratory Infection Stated Complaint: Cold Symptoms Time Seen by Provider: 04/22/25 12:27 Source: patient, RN notes reviewed and old records reviewed Mode of arrival: ambulatory Limitations: no limitations History of Present Illness HPI Narrative: 70-year-old male presents to the [facility] with 3 day history of a runny nose, developed cough last night. Did take Coricidin and medicine. Denies pain, fevers. Related Data Home Medications ?Medication ?Instructions ?Recorded ?Confirmed ?Last Taken ?Type amlodipine 2.5 mg tablet 2.5 mg PO HS 06/03/20 02/27/25 12/25/23 History ascorbic acid (vitamin C) 500 mg 500 mg PO DAILY 06/03/20 02/27/25 Unknown History tablet aspirin 81 mg tablet,delayed 81 mg PO DAILY 06/03/20 02/27/25 12/23/23 History release (Adult Aspirin Regimen) metoprolol tartrate 25 mg tablet 25 mg PO BID 06/03/20 02/27/25 12/25/23 History nitroglycerin 0.4 mg sublingual 0.4 mg sublingual Q5M PRN Chest 06/03/20 02/27/25 Unknown History tablet Pain omega-3 fatty acids 1,000 mg 1,000 mg PO DAILY 06/03/20 02/27/25 Unknown History capsule (Fish Oil Concentrate) omeprazole 40 mg capsule,delayed 40 mg PO DAILY 06/03/20 02/27/25 07/27/21 04:00 History release ranolazine 1,000 mg 1,000 mg PO Q12H 06/03/20 02/27/25 07/27/21 04:00 History tablet,extended release,12 hr rosuvastatin 40 mg tablet 40 mg PO DAILY 08/18/23 02/27/25 Unknown History tamsulosin 0.4 mg capsule 0.4 mg PO HS 08/18/23 02/27/25 Unknown History Allergies Allergy/AdvReac Type Severity Reaction Status Date / Time codeine AdvReac Intermediate Nausea Verified 04/22/25 12:18 Review of Systems Review of Systems: All systems reviewed & are unremarkable except as noted in HPI and below Constitutional: Constitutional: Reports no additional constitutional complaints ENT: Reports as per HPI Cardiovascular: Cardiovascular: Reports no additional cardiovascular complaints, Denies chest pain and Denies dyspnea Respiratory: Respiratory: Reports as per HPI, Denies chest congestion, Reports cough and Denies dyspnea Musculoskeletal: Musculoskeletal: Reports no additional musculoskeletal complaints Integumentary/Breasts: Skin/Breast: Reports system reviewed and no additional complaints, except as docu [facility] Past Medical History Medical History History of aortic aneurysm Anemia History of basal cell cancer Pain in right leg Other hyperlipidemia Rupture of right biceps tendon Heart disease Coronary artery disease BMI 29.0-29.9,adult Surgical History Surgical History History of placement of ear tubes History of arthroscopy of right knee 12/25/23 H/O heart artery stent Family History Family History Father Family history of cardiovascular disease Acute myocardial infarction, Onset Age: 30 Grandparent Family history of cardiovascular disease Sibling Family history of cardiovascular disease Family history of malignant neoplasm of breast Family history of malignant neoplasm of ovary Diabetes mellitus Depression Mother Family history of dementia Social History Social History Social History: Caffeine- coffee daily Smoking packs per day: 1 Smoking cigarettes per day: 20.0 Years smoked: 50 Smoking pack-years: 50.00 Smoking status: Current every day smoker Tobacco type: cigarettes Additional smoking assessment comments: SMOKING 1/2 PACK CURRENTLY Alcohol intake: current Drinks per week: 4 Substance use type: does not use Do You Feel Safe in your Home?: Yes Lack of Transportation: No Lack of Food: Never True Current Housing: I Have Housing Concerned About Future Housing: No Difficulty Paying Gas/Electric Bills: No Difficulty Paying for Meds: No Currently Unemployed: No Education: High School Diploma/GED Difficulty w/ Childcare or Family Care: No Living arrangements: with family Additional living arrangements comments: Occupation/Education: retired Gender identity (if verbalized by the patient): Male Spiritual care concerns: No Comments At the time of my signature, I reviewed and agree with the nursing past medical, surgical, social, and family history. There is no relevant family history pertinent to the patient complaint. Exam Const: General: cooperative, healthy appearing, comfortable, no acute distress, well developed, alert and well nourished Nutritional Appearance: well nourished Orientation/consciousness: patient oriented x3 Limitations: no limitations HENMT: Head: normal to inspection Ears: hearing grossly normal bilaterally, external ears normal, TM's normal bilaterally, EAC's normal, mastoids normal and no periauricular adenopathy Mouth: Yes Normal oral and palatal mucosa present, Yes lip normal, Yes tongue normal and Yes moist mucous membranes Throat: posterior oropharynx normal, uvula midline and no uvular edema Eyes: General: appearance normal, both eyes and all related structures Alignment and Position: alignment normal Neck: Neck: normal visual inspection, full ROM, no lymphadenopathy and no meningeal signs Chest: Chest palpation & inspection: normal inspection of the chest Resp: Effort & Inspection: normal respiratory effort and able to speak in complete sentences Auscultation: clear to auscultation bilaterally, no crackles, no rales, no rhonchi and no wheezes Cardio: Rate: regular rate Skin: General skin exam: normal color and no rashes or lesions noted Neuro: General: patient oriented x3, gait normal, moves all extremities and no meningeal signs Cognition (Neuro): normal cognition Speech: normal speech Gait exam (Neuro): Normal gait present Extrem: General: normal to inspection, full ROM, capillary refill normal and normal gait Psych: Appearance: grossly normal and well kempt Mental Status: mental status grossly normal Speech and movement: Normal speech and movement present and Clear speech present Affect: normal affect Attitude: cooperative Course Course Level of Care: Express Care Visit Vital Signs Vital signs: Vital Signs Temperature 97.8 F 04/22/25 12:23 Pulse Rate 81 04/22/25 12:23 Respiratory Rate 18 04/22/25 12:23 Blood Pressure 125/114 H 04/22/25 12:23 Pulse Oximetry 97 04/22/25 12:23 Oxygen Delivery Room Air 04/22/25 12:23 Temperature 97.8 F 04/22/25 12:23 Pulse Rate 81 04/22/25 12:23 Respiratory Rate 18 04/22/25 12:23 Blood Pressure 122/58 L 04/22/25 12:37 Pulse Oximetry 97 04/22/25 12:23 Oxygen Delivery Room Air 04/22/25 12:23 Reviewed MDM - URI/Sore Throat MDM Narrative Medical decision making narrative: Patient sitting comfortably in exam. Patient is nontoxic, vitals stable. Patient presents with runny nose for 3 days, cough last night. No acute findings noted on exam Patient appropriate for outpatient treatment with follow-up. Discharge instructions reviewed with patient, as well as provided in writing per nursing staff. The instructions also include specific and strict return/GO TO THE ER as well as f/u information. All questions have been answered, and the patient deny any further questions with discharge and discharge plan. Some parts of this dictation were generated by voice recognition software and may contain typographical and/or grammatical inaccuracies. Differential Diagnosis Differential diagnosis: Likely upper respiratory infection, otitis media, sinusitis, viral infection, bronchitis, influenza and pharyngitis Critical Care Time Critical Care Time Critical Care Time: No Discharge Plan Discharge Clinical Impression: Upper respiratory infection, Sinusitis Patient Disposition: Home Condition: Stable Instructions: Sinusitis (ED) Additional Instructions: Your symptoms are likely due to a viral illness, which is not treated with antibiotics. Typically viral infections last 7-10 days, can linger for couple of weeks. It is very important to treat your symptoms. Drink plenty of water, Gatorade, Pedialyte, ice pops or Jell-O. -take Tylenol as needed for pain per package instructions -Antihistamine medication such as Claritin during the day can help improve symptoms. -doing daily nasal irrigations can help relieve pressure your sinuses. Things like a Neti pot -Use Flonase daily to help reduce the inflammation and dry up your sinuses. -You can also use Coricidin HBP. Be sure to drink plenty of water with this medication at least 8 ounces with every dose and it is important to drink 8 to 10 glasses of water per day. Water is a natural decongestant -Frequent hand washing or hand regional clinical director is one of the best ways to prevent spread of infection. -Using a vaporizer or humidifier at night will also help thin secretions and help with coughing up phlegm. -Follow up with primary care provider in 7-10 days if condition is not improving - For new or worsening symptoms go directly to the nearest ER Patient Language: Welsh Prescriptions: No Action amlodipine 2.5 mg tablet 2.5 mg PO HS ascorbic acid (vitamin C) 500 mg tablet 500 mg PO DAILY aspirin [Adult Aspirin Regimen] 81 mg tablet,delayed release (DR/EC) 81 mg PO DAILY omega-3 fatty acids [Fish Oil Concentrate] 1,000 mg capsule 1,000 mg PO DAILY metoprolol tartrate 25 mg tablet 25 mg PO BID nitroglycerin 0.4 mg tablet, sublingual 0.4 mg SUBLINGUAL Q5M PRN (Reason: Chest Pain) Rx Instructions: do not exceed 3 doses per episode omeprazole 40 mg capsule,delayed release(DR/EC) 40 mg PO DAILY ranolazine 1,000 mg tablet extended release 12 hr 1,000 mg PO Q12H rosuvastatin 40 mg tablet 40 mg PO DAILY tamsulosin 0.4 mg capsule 0.4 mg PO HS citalopram 10 mg tablet 10 mg PO HS Qty: 90 1RF Follow-up/Referrals: Pernell Pires DO [Primary Care Provider] - 1 Week ([facility] care follow up ) Time of Disposition: 12:40
[2025-04-22 12:37] VITALS: BP 122/58
== END 2025-04-22 12:41 | disposition home or self-care (01) ==
PROVIDERS: Emergency Provider Nurse Practitioner; PCP Internal Medicine
DX: J06.9 Acute upper respiratory infection, unspecified (principal); J32.9 Chronic sinusitis, unspecified; F17.210 Nicotine dependence, cigarettes, uncomplicated; I25.10 Atherosclerotic heart disease of native coronary artery without angina pectoris; E78.49 Other hyperlipidemia; I71.9 Aortic aneurysm of unspecified site, without rupture; Z95.5 Presence of coronary angioplasty implant and graft; Z79.82 Long term (current) use of aspirin
CPT/HCPCS: 99211; G0463